=== PATIENT | female | born 2000 | race Hispanic/Latino ===

== ENCOUNTER 2022-05-09 04:52 | Emergency (ER) | payer OTHER ==
[2022-05-09] MEDS ORDERED: Ketorolac Tromethamine 30 MG/ML VIAL ONE (05:40)
== END 2022-05-09 05:30 | disposition home or self-care (01) ==
LOC: CSHERS 04:52
DX: H66.91 Otitis media, unspecified, right ear (principal)
CPT/HCPCS: J1885

== ENCOUNTER 2022-05-09 12:52 | Emergency (ER) | payer OTHER ==
[2022-05-09] MEDS ORDERED: Ondansetron ODT 4 MG TAB ONE (14:47)
[2022-05-09] MEDS ORDERED: Ibuprofen 200 MG TAB ONE (14:48)
== END 2022-05-09 14:50 | disposition home or self-care (01) ==
LOC: CSHERS 12:52
DX: H65.91 Unspecified nonsuppurative otitis media, right ear (principal); H72.91 Unspecified perforation of tympanic membrane, right ear; H66.91 Otitis media, unspecified, right ear
CPT/HCPCS: 99283; J1885; Q0162